=== PATIENT | female | born 1975 | race African-American/Black ===

== ENCOUNTER 2023-11-12 14:25 | Emergency (ER) | payer MEDICAID ==
[~2023-11-12] VITALS: Ht 149.9 cm; Wt 63.6 kg
[2023-11-12 14:29] VITALS: BP 138/108; PULSE 96; RESP 16; TEMP 98.6; O2SAT 96
== END 2023-11-12 17:23 | disposition home or self-care (01) ==
LOC: ER 14:27
DX: F60.0 Paranoid personality disorder (principal); Z88.6 Allergy status to analgesic agent
CPT/HCPCS: 99281